=== PATIENT | female | born 1950 | race Caucasian/White ===

== ENCOUNTER 2018-12-06 08:28 | Inpatient (IN) | payer MEDICARE, BC ==
[2018-12-03 18:22] VITALS: Ht 157.5 cm; Wt 83.0 kg
[~2018-12-06] VITALS: Ht 157.5 cm; Wt 83.0 kg
[2018-12-06] VITALS (19 sets, daily range): BP systolic 112–140; BP diastolic 61–107; PULSE 61–90; RESP 11–20
--- NOTE | 2018-12-06 06:01 | HPN ---
Date/Time of Note Date/Time of Note DATE: 12/06/18 TIME: 06:01 Interval H&P Admission Note Pt. seen H&P reviewed: No system changes ARCHIE ZIMMERMAN MD Dec 06, 2018 06:01
--- NOTE | 2018-12-06 06:04 | OPR ---
Date/Time of Note Date/Time of Note DATE: 12/06/18 TIME: 06:01 Operative Report Procedure Date: Dec 06, 2018 Preoperative Diagnosis Right shoulder secondary arthritis with massive unrepairable rotator cuff tear Postoperative Diagnosis 1. Right shoulder secondary arthritis 2. Right shoulder acromioclavicular joint primary arthritis 3. Right shoulder massive, unrepairable rotator cuff tear Operation/Procedure Performed 1. Right reverse total shoulder replacement 2. Right open distal clavicular excision 3. Right shoulder injection of PRP solution Surgeon see signature line [employer] Supervisor Vishnu Alba PA-C Anesthesia Type: general Estimated Blood Loss: 100 - 150 ml's Transfusion none Specimen None Grafts/Implants See operative note Complications none Pt Condition Post Procedure: stable Disposition: PACU Procedure Description DOCUMENTATION SPECIALIST SURGEON: Vishnu Alba PA-C was asked to be present for this case at my request. Assistance was necessary as a result of the highly technical nature of this operation. When performing an open total shoulder replacement, it is critical to have a trained assistant maintenance manager who is an expert in handling the extremity and assisting the surgeon in tasks such as suture management and knot- tying techniques as well as implants. This assistance cannot be performed by a solar lab technician, as it is considered an integral part of the procedure and the assistant maintenance manager should be compensated for his time. PROCEDURE IN DETAIL: Following the administration of general anesthesia supplemented with a peripheral nerve block for postoperative pain control, the patient was examined under anesthesia. This revealed severe stiffness and significant glenohumeral as well as subacromial crepitus. Motion was markedly limited to less than 85 degrees of abduction with 60 degrees of external rotation. The antecubital fossa was then prepped and 60 cc of blood were aspirated. The blood was then subsequently given to the resources representative from the company to prepare the PRP solution. The patient was then placed in the beach chair position. Sterile prep and drape was then undertaken of the right upper extremity. An extended deltopectoral incision was then carried through the interval exposing the conjoined tendon and retracting it medially. The superior aspect of the joint was then evaluated. Significant osteophytes were noted in the acromioclavicular joint. The acromioclavicular joint capsule was then entered and the distal clavicle skeletonized for a distance of 10 mm. Severe arthritic changes were noted. An osteotome was then used to resect 10 mm of the distal clavicle. A good decompression was confirmed. The AC joint was irrigated and closed using a #2 interrupted suture. The subscapularis was noted to be partially disrupted superiorly. Very severe a rthritic changes were noted with very large peripheral osteophytes and a flattened humeral head. The superior rotator cuff was torn and retracted. The biceps tendon was noted to be subluxed. The intra-articular portion was resected in the distal portion tenodesed to the bicipital groove with multiple #2 sutures. A humeral head osteotomy was then created in the appropriate degree of version and inclination. The humerus was retracted and the glenoid was exposed. Peripheral osteophytes were removed and a complete capsulectomy performed. The central canal of the glenoid was then entered and prepared for a standard Depuy baseplate. A standard Depuy baseplate was then applied with four peripheral screws and solid fixation. A 38 mm glenosphere, with a 2 mm offset was then applied, with solid fixation. The humerus was then reamed and prepared for a 14 mm humeral component with a standard metaphyseal component with a 3mm liner. The humeral canal was irrigated and the PRP solution was implanted within the humeral canal. The actual components were implanted with solid fixation. The arm was taken through full range of motion with no evident instability. The joint was then thoroughly irrigated, the deep tissues were approximated using #1 suture followed by closure of the deep layer using 2-0 Monocryl. The skin was closed using 4-0 Monocryl suture, and a Prenio dressing. An Ultrasling was then applied. The patient was awakened and transported to the recovery room in stable condition. Estimated blood loss for this procedure was 150 cc. Radiographs will be obtained in the recovery room. ARCHIE ZIMMERMAN MD Dec 06, 2018 06:04
[2018-12-06] MEDS ORDERED: TRANEXAMIC ACID 1GM/100ML(PMX) 100 ML IVPB ONE ×2 (09:00→13:00)
[2018-12-06] MEDS ORDERED: GABAPENTIN 300 MG CAP PO ONE (09:00)
[2018-12-06] MEDS ORDERED: CEFAZOLIN 2 GM/50 ML (PMX) 50 ML IVPB ONE (09:00)
[2018-12-06] MEDS ORDERED: BUPIVACAINE 0.5% (SDV) 30 ML, morphine SULFATE (PF) 8 MG, EPINEPHrine 0.3 MG, KETOROLAC... IRR SCH ×7 (09:00)
[2018-12-06] MEDS ORDERED: DEXAMETHASONE 1 MG TAB PO ONE (09:00)
[2018-12-06] MEDS ORDERED: LACTATED RINGER'S 1,000 ML IV SCH (09:30)
--- NOTE | 2018-12-06 10:05 | PREAC ---
Date/Time of Note Date/Time of Note DATE: 12/06/18 TIME: 10:04 Anesthesia Eval and Record Evaluation Time Pre-Procedure Interview DATE: 12/06/18 TIME: 10:04 Age 68 Sex female NPO: 8 hrs Preoperative diagnosis Right shoulder secondary arthritis with massive unrepairable rotator cuff tear Planned procedure right reverse total shoulder replacement Past Medical History Past Medical History: Includes Musculoskeletal: Osteoarthritis GI: Obesity Surgery & Anesthesia Issues No known issue Meds Anticoagulation: No Beta Raisa within 24 hr: No Reason Beta Raisa not given: Pt. not on B-Raisa No Active Prescriptions or Reported Meds Current Medications Bupivacaine HCl/ Morphine Sulfate/ Epinephrine/ Ketorolac Tromethamine/ Clonidine/Sodium Chloride/ Vancomycin HCl INTRA-OP IRR ; Start 12/06/18 at 09:00 Lactated Ringer's 1,000 ml @ 0 mls/hr Q0M IV ; Start 12/06/18 at 09:30 Meds reviewed: Yes Allergies Coded Allergies: No Known Allergy (Unverified , 12/06/18) Allergies Reviewed: Yes Labs/Studies Labs Reviewed: Reviewed by anesthesiologist test: N/A Pre-procedure Exam Last vitals Vital Signs Date Temp Pulse Resp B/P (MAP) Pulse Ox O2 O2 Flow FiO2 Time Delivery Rate 12/06/18 97.8 78 16 140/69 16 Room Air 09:12 (92) Airway: Adequate mouth opening, Adequate thyromental dist Mallampati: Mallampati II Teeth: Normal Lung: Normal Heart: Normal ASA Physical Status ASA physical status: 2 Emergency: None Planned Anesthetic General/MAC: ETT Nerve block: Brachial plexus (right) Planned Pain Management Single shot nerve block, Parenteral pain med Pre-operative Attestations Prior to commencing anesthesia and surgery, the patient was re-evaluated, there was verification of: *The patient's identity *The results of appropriate recent lab work and preoperative vital signs *The above evaluation not changing prior to induction *Anesthetic plan, risk benefits, alternative and complications discussed with patient/family; questions answered; patient/family understands, accepts and wishes to proceed. VONDA RENTERIA MD Dec 06, 2018 10:05
[2018-12-06] MEDS ORDERED: POLYMYXIN/BACITRACIN 1L IRRIG ONE ×2 (10:57→11:09)
[2018-12-06] MEDS ORDERED: TRANEXAMIC ACID 1GM/100ML(PMX) 200 ML ONE (10:57)
[2018-12-06] MEDS ORDERED: BUPIVACAINE 0.5%/EPI (SDV) 30 ML INJ ONE (10:57)
[2018-12-06] MEDS ORDERED: THROMBIN (BOVINE) 5,000 UNIT VIAL TP ONE (11:08)
[2018-12-06] MEDS ORDERED: CA CHLORIDE 10% 10 ML SYRINGE ONE (11:08)
[2018-12-06] MEDS ORDERED: PROPOFOL 20 ML ONE (11:17)
[2018-12-06] MEDS ORDERED: SUCCINYLCHOLINE CHLORIDE 100 MG/5 ML SYG IV ONE (11:17)
[2018-12-06] MEDS ORDERED: ROCURONIUM 50 MG INJ ONE (11:17)
[2018-12-06] MEDS ORDERED: LIDOCAINE 2% (SDV) 5 ML INJ ONE (11:17)
[2018-12-06] MEDS ORDERED: MIDAZOLAM 1 MG/ML 2 ML INJ ONE (11:18)
[2018-12-06] MEDS ORDERED: FENTAnyl 50 MCG/ML VIAL ONE (11:18)
[2018-12-06] MEDS ORDERED: ROPIVACAINE 0.5 % 30 ML VIAL ONE (11:19)
[2018-12-06] MEDS ORDERED: ONDANSETRON 4 MG INJ ONE (12:04)
[2018-12-06] MEDS ORDERED: DEXAMETHASONE 4 MG/ML 5 ML INJ ONE (12:04)
[2018-12-06] MEDS ORDERED: FAMOTIDINE 20 MG INJ ONE (12:05)
[2018-12-06] MEDS ORDERED: EPHEDrine 25 MG/5 ML SYG ONE (12:08)
[2018-12-06] MEDS ORDERED: PROCHLORPERAZINE 10 MG INJ IV PRN (12:30)
[2018-12-06] MEDS ORDERED: MEPERIDINE 25 MG INJ IV PRN (12:30)
[2018-12-06] MEDS ORDERED: ONDANSETRON 4 MG INJ IV PRN ×2 (12:30→13:00)
[2018-12-06] MEDS ORDERED: DIPHENHYDRAMINE 50 MG INJ IV PRN ×2 (12:30→13:00)
[2018-12-06] MEDS ORDERED: EPHEDrine 25 MG/5 ML SYG IV PRN (12:30)
[2018-12-06] MEDS ORDERED: FENTAnyl 50 MCG/ML VIAL IV PRN (12:30)
[2018-12-06] MEDS ORDERED: HYDROmorphONE 1 MG/5 ML IV SYRINGE IV PRN ×3 (12:30)
[2018-12-06] MEDS ORDERED: KETOROLAC 15 MG INJ IV PRN (13:00)
[2018-12-06] MEDS ORDERED: oxyCODONE 5 MG TAB PO PRN ×3 (13:00)
[2018-12-06] MEDS ORDERED: ZOLPIDEM 5 MG TAB PO PRN (13:00)
[2018-12-06] MEDS ORDERED: MAGNESIUM HYDROXIDE 30ML CUP PO PRN (13:00)
[2018-12-06] MEDS ORDERED: NACL 0.9% 3 ML SYG IV SCH (13:00)
[2018-12-06] MEDS ORDERED: HYDROmorphONE 1 MG/ML SYG IV PRN (13:00)
[2018-12-06] MEDS ORDERED: LOPERAMIDE 2 MG CAP PO PRN (13:00)
[2018-12-06] MEDS ORDERED: GLYCOPYRROLATE 0.4 MG INJ ONE ×2 (13:04→13:08)
[2018-12-06] MEDS ORDERED: NEOSTIGMINE 3 MG/3 ML SYRINGE ONE ×2 (13:04→13:08)
--- NOTE | 2018-12-06 13:30 | PAC ---
Date/Time of Note Date/Time of Note DATE: 12/06/18 TIME: 13:29 Post-Anesthesia Notes Post-Anesthesia Note Last documented vital signs Vital Signs Date Temp Pulse Resp B/P (MAP) Pulse Ox O2 O2 Flow FiO2 Time Delivery Rate 12/06/18 97.8 78 16 140/69 16 Room Air 09:12 (92) Activity: WNL Respiratory function: WNL Cardiovascular function: WNL Mental status: Baseline Pain reasonably controlled: Yes Hydration appropriate: Yes Nausea/Vomiting absent: Yes Comments BP: 132/67 HR: 68 RR: 15 T: 98.6 SaO2: 100% VONDA RENTERIA MD Dec 06, 2018 13:30
[2018-12-06] MEDS: CEFAZOLIN 1 GM/50 ML (PMX) 50 ML IVPB SCH ×2 (13:41→20:44)
--- NOTE | 2018-12-06 14:18 | PDOCDIS ---
Discharge Instructions DIAGNOSIS Discharge Diagnosis Rotator cuff tear arthropathy CONDITION [id number] Patient Condition: [id number] Good HOME CARE INSTRUCTIONS: [id number] Diet Instructions: [id number] Regular ACTIVITY: [id number] Activity Restrictions: [id number] Slowly Increase Activity Keep Limb Elevated [id number] Bathing Restrictions: [id number] Shower FOLLOW UP/APPOINTMENTS Follow-up Plan 2 weeks in the office SCHOOL/WORK RELEASE May return to School/Work with: With Restrictions School/Work Release Comment: 5 pound tabletop usage for 6 weeks ARCHIE ZIMMERMAN MD Dec 06, 2018 14:18
[2018-12-06] MEDS: DEXAMETHASONE 2 MG TAB PO SCH ×2 (18:17→23:16)
[2018-12-06] MEDS: ACETAMINOPHEN 500 MG TAB PO SCH ×2 (18:17→23:16)
[2018-12-06] MEDS: SENNA/DOCUSATE NA (8.6MG/50MG) TAB PO SCH (20:48)
[2018-12-06] MEDS ORDERED: GABAPENTIN 300 MG CAP PO SCH (21:00)
[2018-12-07] MEDS: CEFAZOLIN 1 GM/50 ML (PMX) 50 ML IVPB SCH (05:22)
[2018-12-07] MEDS: DEXAMETHASONE 2 MG TAB PO SCH (05:22)
[2018-12-07] MEDS: ACETAMINOPHEN 500 MG TAB PO SCH (05:23)
--- NOTE | 2018-12-07 06:04 | PN ---
Date/Time of Note Date/Time of Note DATE: 12/07/18 TIME: 06:03 Subjective Awake and alert with no complaints this morning. Objective Vitals Vital Signs Date Temp Pulse Resp B/P (MAP) Pulse Ox O2 O2 Flow FiO2 Time Delivery Rate 12/07/18 Nasal 2.0 02:35 Cannula 12/06/18 98.3 87 18 114/65 98 23:29 (81) Intake and Output 12/06/18 12/06/18 12/07/18 1515:00 23:00 07:00 IntakeIntake Total 1100 ml 400 ml OutputOutput Total 50 ml BalanceBalance 1050 ml 400 ml Wound is clean and dry. She is neurologically intact. There are no signs of DVT. Medications Medications Current Medications Lactated Ringer's 1,000 ml @ 0 mls/hr Q0M IV ; Start 12/06/18 at 09:30 Senna/Docusate Sodium (Senokot-S) 1 tab BID PO Last administered on 12/06/18at 20:48; Admin Dose 1 TAB; Start 12/06/18 at 21:00 Simethicone (Mylicon) 80 mg TID PRN PO .GAS; Start 12/06/18 at 13:00 Magnesium Hydroxide (Milk Of Mag) 30 ml BID PRN PO .CONSTIPATION; Start 12/06/18 at 13:00 Loperamide HCl (Imodium Cap) 2 mg Q6H PRN PO .DIARRHEA; Start 12/06/18 at 13:00 Dexamethasone (Decadron) 2 mg Q6 PO Last administered on 12/07/18at 05:22; Admin Dose 2 MG; Start 12/06/18 at 18:00; Stop 12/07/18 at 12:01 Gabapentin (Neurontin) 300 mg HS PO Last administered on 12/06/18at 20:47; Admin Dose 300 MG; Start 12/06/18 at 21:00 Acetaminophen (Tylenol Tab) 500 mg Q6 PO Last administered on 12/07/18at 05:23; Admin Dose 500 MG; Start 12/06/18 at 18:00 Oxycodone HCl (Roxicodone) 15 mg Q4H PRN PO .PAIN; Start 12/06/18 at 13:00 Oxycodone HCl (Roxicodone) 10 mg Q4H PRN PO .PAIN; Start 12/06/18 at 13:00 Oxycodone HCl (Roxicodone) 5 mg Q4H PRN PO .PAIN; Start 12/06/18 at 13:00 Hydromorphone HCl (Dilaudid) 1 mg Q4H PRN IV .BREAKTHROUGH PAIN; Start 12/06/18 at 13:00 Ketorolac Tromethamine (Toradol) 15 mg Q6H PRN IV .PAIN; Start 12/06/18 at 13:00 Ondansetron HCl (Zofran Inj) 4 mg Q6H PRN IV NAUSEA/VOMITING; Start 12/06/18 at 13:00 Diphenhydramine HCl (Benadryl) 25 mg Q6H PRN IV .PRURITUS; Start 12/06/18 at 13:00 Zolpidem Tartrate (Ambien) 10 mg HS PRN PO .INSOMNIA; Start 12/06/18 at 13:00 IV Flush (NS 3 ml) 3 ml per protocol IV ; Start 12/06/18 at 13:00 VTE Prophylaxis Risk score (from Nsg)>0 risk: 8 SCD applied (from Nsg): Yes Lines/Catheters IV Catheter Type: Saline Lock Felder in Place: No Assessment/Plan Assessment/Plan Assessment: Status post reverse total shoulder replacement Plan: Begin PT this morning then discharge home after ARCHIE ZIMMERMAN MD Dec 07, 2018 06:03
--- NOTE | 2018-12-07 06:04 | DS ---
Date/Time of Note Date/Time of Note DATE: 12/07/18 TIME: 06:04 Discharge Summary Admission/Discharge Info Admit Date/Time Dec 06, 2018 at 13:00 Discharge Date/Time 12/07/2018 Discharge Diagnosis Rotator cuff tear arthropathy Patient Condition: Good Hospital Course Admitted and underwent uncomplicated procedure. Discharged home after PT. Home Meds No Active Prescriptions or Reported Meds Follow-up Plan 2 weeks in the office Primary Care Provider Not On Staff Doctor ARCHIE ZIMMERMAN MD Dec 07, 2018 06:04
[2018-12-07 08:02] VITALS: BP 110/60; PULSE 84; RESP 18
[2018-12-07] MEDS: SENNA/DOCUSATE NA (8.6MG/50MG) TAB PO SCH (09:00)
== END 2018-12-07 10:35 | disposition home or self-care (01) | DRG 483 ==
LOC: SUR 08:28 → SDS 08:28 → SUR 12:59 → REC 13:00 → MS1 14:20
PROVIDERS: ADMIT Orthopaedic Surgery; ATTEND Orthopaedic Surgery
PROC: 0LS30ZZ Reposition Right Upper Arm Tendon, Open Approach (ICD-10-PCS; 2018-12-06)
PROC: 0RRJ00Z Replacement of Right Shoulder Joint with Reverse Ball and Socket Synthetic Substitute, Open Approach (ICD-10-PCS; principal; 2018-12-06 10:30)
DX: M19.211 Secondary osteoarthritis, right shoulder (principal); M19.011 Primary osteoarthritis, right shoulder; M75.101 Unspecified rotator cuff tear or rupture of right shoulder, not specified as traumatic; M67.813 Other specified disorders of tendon, right shoulder
CPT/HCPCS: 86999; 88304; 88311; 97162; C1776; J0171; J0690; J0735; J1100; J1885; J2250; J2274; J2405; J2710; J2795; J3010; J3370